=== PATIENT | male | born 1970 | race Caucasian/White ===

== ENCOUNTER 2018-07-22 16:00 | Outpatient (CLI) | payer BC | END 2018-07-22 16:01 | disposition home or self-care (01) | LOC: SLEEPLAB 16:00 | PROVIDERS: ATTEND Otolaryngology Plastic Surgery within the Head & Neck | DX: G47.33 Obstructive sleep apnea (adult) (pediatric) (principal); R53.83 Other fatigue; R06.83 Snoring | CPT/HCPCS: 95806 ==

== ENCOUNTER 2018-08-09 20:30 | Outpatient (CLI) | payer OTHER | END 2018-08-09 20:31 | disposition home or self-care (01) | LOC: SLEEPLAB 20:30 | PROVIDERS: ATTEND Otolaryngology Plastic Surgery within the Head & Neck | DX: Z02.9 Encounter for administrative examinations, unspecified (principal) | CPT/HCPCS: 95811 ==

== ENCOUNTER 2024-08-05 18:29 | Day surgery (SDC) | payer BC ==
[2024-08-05] MEDS ORDERED: fentaNYL PF 100 MCG/2 ML SYRINGE ONE (18:32)
[2024-08-05] MEDS ORDERED: PROPOFOL 40 ML ONE ×2 (18:33→20:21)
[2024-08-05] MEDS ORDERED: PHENYLephrine 2.5% Ophth Soln 15 ml Bottle ONE (18:43)
[2024-08-05] MEDS ORDERED: Cyclopentolate 1% Opth Drop 2 ML BOT ONE (18:43)
[2024-08-05] MEDS ORDERED: Propofol 1,000 MG/100 ML VIAL IV ONE ×2 (18:44→20:09)
[2024-08-05] MEDS ORDERED: Fentanyl 250 MCG/5 ML VIAL ONE (18:45)
[2024-08-05] MEDS ORDERED: Midazolam HCl 2 mg/2 ml Vial ONE (19:00)
[2024-08-05] MEDS ORDERED: Fluorouracil 100 MG, Enoxaparin 25 MG, EPINEPHrine 0.3 MG in Ophthalmic Irrigation Solu... IRR SCH (19:00)
[2024-08-05] MEDS ORDERED: SUGAMMADEX SODIUM 200 MG/2 ML VIAL ONE (19:32)
[2024-08-05] MEDS ORDERED: Lidocaine 1% PF 5 ML VIAL ONE (19:40)
[2024-08-05] MEDS ORDERED: Rocuronium Bromide 10 MG/ML (10ML VIAL) ONE (19:40)
[2024-08-05] MEDS ORDERED: Dexamethasone 20 MG/5 ML VIAL ONE (19:40)
[2024-08-05] MEDS ORDERED: Bupivacaine 0.75% 10 ML VIAL ONE (19:40)
[2024-08-05] MEDS ORDERED: Ondansetron PF 4 MG/2 ML Vial ONE (19:40)
[2024-08-05] MEDS ORDERED: Glycopyrrolate 0.2 MG/ML 5 ML SYRINGE ONE (19:40)
[2024-08-05] MEDS ORDERED: Lidocaine 4% PF 5 ML AMP ONE (19:40)
[2024-08-05] MEDS ORDERED: Maxitrol 0.1% Opth Oint 3.5 GM TUBE ONE (19:40)
[2024-08-05] MEDS ORDERED: CEFAZOLIN 1 GM VIAL ONE (19:40)
[2024-08-05] MEDS ORDERED: Triamcinolone 40 MG/ML VIAL ONE (19:40)
== END 2024-08-05 22:00 | disposition home or self-care (01) ==
LOC: SDC 18:29
PROVIDERS: ATTEND Ophthalmology Retina Specialist
PROC: 08T43ZZ Resection of Right Vitreous, Percutaneous Approach (ICD-10-PCS; principal; 2024-08-05)
DX: H33.021 Retinal detachment with multiple breaks, right eye (principal); E11.9 Type 2 diabetes mellitus without complications; K21.9 Gastro-esophageal reflux disease without esophagitis; E78.5 Hyperlipidemia, unspecified; E03.9 Hypothyroidism, unspecified; Z87.891 Personal history of nicotine dependence; Z90.49 Acquired absence of other specified parts of digestive tract; Z98.890 Other specified postprocedural states
CPT/HCPCS: 67025; J0171; J0690; J1100; J1650; J2250; J2405; J2704; J3010; J3301; J3490; J9190